=== PATIENT | female | born 1970 | race Caucasian/White ===

== ENCOUNTER → 2018-08-29 08:05 | Outpatient (CLI) | payer OTHER, SELFPAY ==
--- NOTE | 2018-08-29 08:07 | MM_ITS ---
MM Dig screening mamm BI w/CAD CAD Screening COMPARISON: None, this is baseline INDICATION: There is a history of breast cancer patient paternal aunt TECHNIQUE: Standard CC and MLO images were obtained. R2 CAD reviewed. FINDINGS: The breasts are composed primarily of fat with scattered fibroglandular densities in each breast. There is an asymmetric density right breast highlighted by CAD ,recommend the patient return for spot compression views of the area marked on the film. There are scattered benign-appearing ossifications in each breast. There are no suspicious microcalcifications. IMPRESSION: A type breast parenchyma with asymmetric density right breast BI-RADS Category: 0 Need Additional Imaging Evaluation RECOMMENDED FOLLOW-UP: IMM - IMMEDIATE FOLLOW-UP RECOMMENDED (A letter has been sent to the patient regarding results of the study.)
--- NOTE | 2018-08-29 08:07 | US_ITS ---
US transvaginal Ordering Physician: Sandy Verdugo MD Patient Age: 48 years: Female HISTORY: ITS.REASON: US T/V- Abnormal Bleeding Pelvic Pain TECHNIQUE: Transvaginal pelvic ultrasound COMPARISON :February 2007 ultrasound pelvis & CT abdomen FINDINGS: UTERUS: 8.3 cm in length x3.4 x 4.7 cm transverse . No appreciable uterine masses. Endometrial stripe is thickened measuring up to 1.37 cm at superior portion of uterus. Note echogenic focus anterior aspect endometrial stripe in region of the scar as it leads to the endometrium at lower uterine segment... Likely related to the scar itself or minimal calcification A few small scattered nabothian cysts are noted along the cervical canal. LEFT OVARY: Surgically absent RIGHT OVARY. Enlarged measuring 4.25 cm length x 2.13 cm x 3.35 cm. contains moderate size cysts. .Cyst towards the superior portion right ovary measures up to nearly 2.5 cm x 1.25 cm At.Inferior Margin left ovary there is a cyst measuring 1.8 cm X 1.6 cm No significant fluid in cul-de-sac. IMPRESSION: 1. Prominent endometrium- measures up to 1.37 cm AP .... Uterus normal size. No uterine mass is evident. ... Small Echogenic focus anterior aspect lower uterine segment-may be related to to scar 2. Enlarged right ovary.... 4.2 cm maximally. Contain several cysts. The largest measuring up to 2.5 cm 3. No fluid in cul-de-sac.
== END ==
PROVIDERS: PCP Family Medicine; Visit Provider Obstetrics & Gynecology
DX: Z12.31 Encounter for screening mammogram for malignant neoplasm of breast (principal); N92.6 Irregular menstruation, unspecified; R10.2 Pelvic and perineal pain
CPT/HCPCS: 76830; 77067

== ENCOUNTER → 2018-09-21 13:44 | Outpatient (CLI) | payer OTHER, SELFPAY ==
--- NOTE | 2018-09-21 13:58 | XR_ITS ---
XR chest 2V HISTORY: ITS.REASON: BRONCHITIS,COUGH ORDERING PHYSICIAN: Bryn Cash MD PATIENT AGE: 48 years COMPARISON: 03/03/1717 FINDINGS: The cardiomediastinal silhouette and pulmonary vascularity are within normal limits. The lungs are clear without infiltrates, suspicious nodules, or pleural effusions. No acute bony abnormalities. IMPRESSION: Negative chest, no acute finding
--- NOTE | 2018-09-21 14:00 | US_ITS ---
ULTRASOUND RIGHT BREAST MM Dig mamm DX unilat RT CAD Ordering Physician: Bryn Cash MD Patient Age: 48 years Female COMPARISON: 08/29/2018 recent BASELINE screening mammogram INDICATION: Small nodule lateral right breast on that recent screening mammogram DIAGNOSTIC MAMMOGRAM RIGHT BREAST with Spot Views technique: CC and MLO spot views upper outer quadrant along with 90 degree helpful view right breast. Although we again see a small nodular density at the lateral right breast as described on the 08/29/2018 baseline screening mammogram Findings: The small nodular density is is slightly less concerning on mammogram images today measuring 5 mm in size. It seems to correspond with a small cyst at the 9:00 right breast noted on subsequent ultrasound. No new findings otherwise in this diffuse fatty low-density breast.: RIGHT BREAST ULTRASOUND including axillary survey a small cyst is noted at the far lateral right breast 9 o'clock position. This cyst measuring up to measuring 5.2 mm size-would seem to correspond with the density on mammogram. No solid nodule identified. Axillary survey right breast with no significant findings. A few benign-appearing modest size nodes deep axilla observed IMPRESSION......... Small 5 mm nodular density at the 9:00 right breast appears to correspond with a small cyst on subsequent ultrasound No areas of significant concern, identified on either mammogram or ultrasound otherwise. Follow-up in one year. August-September 2019 . BI-RADS Category: 2 Benign Finding(s) RECOMMENDED FOLLOW-UP: 1YR 1 YEAR FOLLOW-UP A letter has been sent to the patient regarding results of the study.) Dictated By: Edwardo Ayers Signed By: 09/25/18 [id number]
== END ==
PROVIDERS: PCP Family Medicine; Visit Provider Family Medicine
DX: R92.8 Other abnormal and inconclusive findings on diagnostic imaging of breast (principal); J40 Bronchitis, not specified as acute or chronic; R05 Cough
CPT/HCPCS: 71046; 76641; 77065

== ENCOUNTER → 2019-12-18 06:24 | Outpatient (CLI) | payer OTHER, SELFPAY ==
--- NOTE | 2019-12-18 | CA_ITS ---
APPROVED REPORT Exam: Pharmacologic Technologist: Jessy Costa Ht: 5 ft 2 in Wt: 200 lbs BSA: 1.91 m2 HR: 123 bpm BP: 126/83 mmHg Indications: CP, SOB Medical History Medications: Metoprolol,,,,, Metformin,,,,, Lasix,,,,, Albuterol,,,,, Montelukast,,,,, DOxepin,,,,, Venlafaxine,,,,, CetIRIZINE,,,,, Allergies: PCN, Codeine, turbutaline Cardiac Risk Factors: HTN, FHX of CAD Stress Test Details Test: LEXISCAN HR Resting HR: 113 bpm Max Heart Rate (APMHR): 172 bpm Max HR Achieved: 128 bpm Target HR (85% APMHR): 146 bpm % of APMHR: 74 Recovery HR: 118 bpm BP Resting BP: 126/83 mmHg Max BP: 139/58 mmHg Recovery BP: 127.0/63.0 mmHg ECG Resting ECG: Sinus tachycardia Clinical Exercise duration: 04:01 min Highest Stage Achieved: Exercise capacity: 1.0 METs Stress ECG Conclusion Lexiscan portion completed. Pt. c/o SOB that resolved during recovery. No chest pain or ectopy. Less than 1.5mm ST Depression. Images to follow Test Summary REST 00:50 . . 113 . 126/ 83 . . Stage 1 . . . . . . . Myoview Injected Stage 1 01:00 . . 122 . . . . Stage 2 01:00 . . 127 . 120/ 70 . . Stage 3 01:00 . . 120 . 139/ 58 . . Stage 4 01:00 . . 118 . 121/ 63 . . Stage 4 01:01 . . 118 . 121/ 63 . Stop exercise at 04:01 RECOVERY 01:00 . . 119 . 127/ 63 . . RECOVERY 02:00 . . 115 . 127/ 63 . . RECOVERY 03:00 . . 114 . 111/ 63 . . RECOVERY 04:00 . . 115 . 135/ 59 . . RECOVERY 04:29 . . 119 . 137/ 66 . . Electronically signed by : Jose Rafael Smiley, 12/18/2019 19:43:42
--- NOTE | 2019-12-18 06:34 | NM_ITS ---
APPROVED REPORT Exam: Nuclear Stress Test Indication: Chest pain, SOB, Palpitations, Syncope, Fatigue, HTN, Former tobacco use, Family history Patient Location: Outpatient Stress Tech: Jessyjonny Costa NM Tech:Lakia Wilder, ARRT, RT (R)(N) Ht: 5 ft 2 in Wt: 260 lbs Bra Size: 38DDD HR: 113 bpm BP: 126/83 mmHg BSA: 2.14 m2 BMI: 47.5 History: Chest pain, SOB, Palpitations, Syncope, Fatigue, HTN, Former tobacco use, Family history Procedure: Patient received a 0.4 mg of intravenous Lexiscan, resting heart rate 113 bpm, resting blood pressure 126/83 mmHg, with Lexiscan maximum heart rate achived was 121 bpm which is Less than 85 % of the maximum predicted heart rate and blood pressure was 139/58 mmHg. With Lexiscan, patient denied any complaint of chest pain. Electrocardiogram Resting electrocardiogram showed sinus rhythm, with Lexiscan there is less than 1.[address] segment depression noted from the baseline EKG. The EKG portion of the Lexiscan Myoview is nondiagnostic. Cardiac Stress and Resting SPECT Images: Cardiac Stress and Resting SPECT images were obtained using technetium 99m Myoview 31.2 mCi stress and 9.94 mCi at rest. Gated SPECT for analysis of segmental wall motion and calculation of the ejection fraction also done. Cardiac stress and resting SPECT images show mild fixed defect in the anterior wall with normal contractility SPECT is likely secondary to soft tissue attenuation, no reversible ischemia seen. Computer derived ejection fraction is over 65% with no regional wall motion abnormality, right ventricle is normal size and contractility. Conclusion: 1. The EKG portion of the Lexiscan Myoview is nondiagnostic. 2. No scintigraphic evidence of reversible ischemia seen, computer derived ejection fraction is over 65% with no regional wall motion abnormality, right ventricle is normal size and contractility. 3. Likely normal Lexiscan Myoview study. Electronically signed by : Jose Rafael Smiley, 12/18/2019 19:45:37
--- NOTE | 2019-12-18 07:17 | CA_ITS ---
APPROVED REPORT EXAM: Comprehensive 2D, Doppler, and color-flow Echocardiogram Purchasing And Claims Supervisor: Yamilet Arellano RVT Ht: 5 ft 2 in Wt: 250lbs BSA: 2.10 BP: 145/82 mmHg Indications: SOA,CP,HTN,FAMILY HX HD TDS 2D Dimensions LVOT 2.06 cm (M/F) 1.5-2.5 M-Mode Dimensions RVDd 2.40 cm (0.9-2.6) LVDd 3.99 cm (3.5-5.7) LVDs 2.74 cm (3.5-5.7) IVSd 0.57 cm (0.6-1.1) PWd 1.14 cm (0.6-1.1) EF (Teich) 59.80% FS 31.30% EDV (Teich) 69.60 mL ESV (Teich) 28.00 mL LV Diastology E/A Ratio 0.85 Mitral Valve MV A Velocity 98.00 (40-130 cm/s) Left Ventricle Left atrium is mildly enlarged, left ventricle is normal size, mild concentric left ventricular hypertrophy, visually estimated ejection fraction of 55 to 60% with no regional wall motion abnormality, Doppler evidence of impaired LV relaxation seen. Right Ventricle Right atrium and right ventricular normal size and contractility. Aortic Valve Aortic valve is minimally thickened and fibrosed, there is no aortic stenosis or aortic insufficiency. Mitral Valve Mitral valve is grossly normal, there is mild mitral regurgitation. Tricuspid Valve Tricuspid valve is grossly normal, there is trace tricuspid regurgitation, tricuspid regurgitation jet velocity is inadequate for calculation of the right ventricular systolic pressure. Pulmonic Valve Pulmonic valve is poorly visualized. Great Vessels Aortic root is normal size. Pericardium No significant pericardial effusion noted. Conclusion 1. Mildly enlarged left atrium, normal left ventricular size, mild concentric left ventricular hypertrophy, visually estimated ejection fraction of 55 to 60% with no regional wall motion abnormality, Doppler evidence of impaired LV relaxation seen 2. Mild mitral and trace tricuspid regurgitation. 3. No significant pericardial effusion noted. Electronically signed by : Jose Rafael Smiley, 12/18/2019 18:33:54
--- NOTE | 2019-12-18 07:45 | HMH.ITSHM ---
Current Home Medications as stated by this patient Jessica Vaughan or loss control representative. []METOPROLOL HCTZ VENAFLAXINE DOXOPIN ASA SINGULAIR CLARITIN ZYRTEC WATER PILL
== END ==
PROVIDERS: PCP Family Medicine; Visit Provider Family Medicine
DX: R06.02 Shortness of breath (principal); R00.0 Tachycardia, unspecified
CPT/HCPCS: 78452; 93017; 93306; A9502; J2785

== ENCOUNTER → 2019-12-25 14:39 | Outpatient (CLI) | payer OTHER, SELFPAY ==
--- NOTE | 2019-12-25 15:05 | US_ITS ---
PROCEDURE: US THYROID CLINICAL INDICATION: HYPERTHYROIDISM Follow-up nodules COMPARISON: THY US THYROID from 08/12/2015 FINDINGS: Right lobe: 3.9 x 1.7 x 1.8 cm. There is heterogeneous echogenicity. Ill-defined 1.6 x 1.3 cm hypoechoic area in the superior pole. 1.4 x 0.8 cm hypoechoic nodular area in the lower pole. Left lobe: 4.3 x 1.6 x 1.6 cm. Heterogeneous echogenicity. 7 mm septated cyst in the mid polar region. There is decreased echogenicity in the mid polar region and in the upper pole without distinct margins. IMPRESSION: Heterogeneous echogenicity of the thyroid gland with questionable nodules versus ill-defined areas of heterogeneous echogenicity. Recommend six-month follow-up. There is a septated cyst in the left lobe. Dictated by: Markus Bradley MD 12/25/2019 19:19 Electronically signed by Markus Bradley MD in [place] 12/25/2019 19:19
== END ==
PROVIDERS: PCP Family Medicine; Visit Provider Family Medicine
DX: E05.90 Thyrotoxicosis, unspecified without thyrotoxic crisis or storm (principal)
CPT/HCPCS: 76536

== ENCOUNTER → 2020-07-05 15:56 | Outpatient (CLI) | payer BC, SELFPAY ==
[2020-07-05 16:36] LABS: Adenovirus,PCR Not Detected (NotDetected); Bordetella Pertussis Not Detected (NotDetected); Chlamydophila Pneumoniae, PCR Not Detected (NotDetected); Coronavirus 229E Not Detected (NotDetected); Coronavirus NL63 Not Detected (NotDetected); Coronavirus OC43 Not Detected (NotDetected); Coronovirus HKU1,PCR Not Detected (NotDetected); Human Metapneumovirus Not Detected (NotDetected); Influenza A, PCR Not Detected (NotDetected); Influenza AH1, 2009 Not Detected (NotDetected); Influenza AH1, PCR Not Detected (NotDetected); Influenza AH3,PCR Not Detected (NotDetected); Influenza B, PCR Not Detected (NotDetected); Mycoplasma Pneumoniae, PCR Not Detected (NotDetected); Parainfluenza 1, PCR Not Detected (NotDetected); Parainfluenza 2, PCR Not Detected (NotDetected); Parainfluenza 3, PCR Not Detected (NotDetected); Parainfluenza 4, PCR Not Detected (NotDetected); Respiratory Syncytial Virus Not Detected (NotDetected); Rhinovirus/Enterovirus Not Detected (NotDetected)
[2020-07-05 16:39] LABS: Basophils # 0.1 K/mm3 (0-0.2); Basophils % 1.1 % (0.1-2.0); Eosinophils # 0.2 K/mm3 (0.0-0.4); Eosinophils % 3.9 % (0.1-12.0); Hematocrit 44.9 % (37.0-47.0); Hemoglobin 14.9 g/dL (12.2-16.2); Lymphocytes # 1.9 K/mm3 (0.7-4.5); Lymphocytes % 43.1 % (10-50); Mean Corpuscular HGB Conc 33.3 g/dL (31.8-35.4); Mean Corpuscular Hemoglobin 29.1 pg (27.0-31.2); Mean Corpuscular Volume 87.4 fl (81-99); Mean Platelet Volume 9.5 fl (7.4-10.4); Monocytes # 0.3 K/mm3 (0.1-1.0); Monocytes % 6.8 % (1.7-9.3); Neutrophils % 45.1 % (37.0-80.0); Platelet Count 170 K/mm3 (142-424); Red Blood Count 5.14 M/mm3 (4.20-5.40); Red Cell Distribution Width 15.7 % (11.5-17.5); White Blood Count 4.3 K/mm3 (4.8-10.8)
[2020-07-08 10:30] LABS: Coronavirus 19, PCR Detected (NotDetected)
== END ==
PROVIDERS: PCP Family Medicine; Visit Provider Nurse Practitioner
DX: Z20.822 Contact with and (suspected) exposure to COVID-19 (principal); U07.1 COVID-19
CPT/HCPCS: 85025; 87275; 87276; 87581; 87633; 87798

== ENCOUNTER 2020-07-10 14:46 | Outpatient (CLI) | payer BC, SELFPAY ==
[2020-07-10 14:55] VITALS: BP 121/67; PULSE 98; RESP 22; TEMP 37.3; O2SAT 98
[2020-07-10 15:01] VITALS: BMI 45.7
== END 2020-07-10 17:45 | disposition home or self-care (01) ==
PROVIDERS: PCP Nurse Practitioner; Visit Provider Nurse Practitioner
DX: U07.1 COVID-19 (principal)
CPT/HCPCS: 96365

== ENCOUNTER → 2023-06-10 23:30 | Outpatient (CLI) | payer BC, SELFPAY ==
[2023-06-10 18:39] LABS: Microalbumin < 6.000 mg/L (0-16.7)
[2023-06-10 18:45] LABS: Alanine Aminotransferase 46 U/L (12-78); Albumin Level 3.6 g/dl (3.5-5.0); Albumin/Globulin Ratio 1.5 (1.1-1.8); Alkaline Phosphatase 87 U/L (38-126); Anion Gap 8.9 mEq/L (5-15); Aspartate Amino Transferase 54 U/L (14-36); Bilirubin,Total 0.4 mg/dl (0.2-1.3); Blood Urea Nitrogen 9 mg/dl (7-17); Calcium 8.5 mg/dl (8.4-10.2); Carbon Dioxide 28 mmol/L (22.0-30.0); Chloride 102 mmol/L (98-107); Chol/HDL Ratio 2.8 (1-3.5); Cholesterol 116 mg/dl (140-200); Estimated Glomerular Filt Rate 75 ml/min (>60); GFR (African American) 91 ML/MIN (>60); Globulin 2.4 g/dL (1.3-3.2); Glucose 229 mg/dl (74-100); HDL Cholesterol 41 mg/dl (40-60); Potassium 3.9 mmoL/L (3.5-5.1); Sodium 135 mmol/L (136-145); Triglycerides 80 mg/dl (30-150); Uric Acid 6.5 mg/dl (2.5-6.2); VLDL Cholesterol 16 mg/dL (0-40)
[2023-06-10 18:46] LABS: Basophils % 0.3 % (0.1-2.0); Eosinophils # 0.2 K/mm3 (0.0-0.4); Eosinophils % 2.9 % (0.1-12.0); Hematocrit 37.1 % (37.0-47.0); Hemoglobin 12.5 g/dL (12.2-16.2); Lymphocytes # 1.8 K/mm3 (0.7-4.5); Lymphocytes % 32.8 % (10-50); Mean Corpuscular HGB Conc 33.7 g/dL (31.8-35.4); Mean Corpuscular Hemoglobin 29.3 pg (27.0-31.2); Mean Platelet Volume 11.3 fl (7.4-10.4); Monocytes # 0.2 K/mm3 (0.1-1.0); Monocytes % 3.8 % (1.7-9.3); Neutrophils # 3.4 K/mm3 (1.8-7.8); Neutrophils % 60.2 % (37.0-80.0); Platelet Count 153 K/mm3 (142-424); Red Blood Count 4.26 M/mm3 (4.20-5.40); Red Cell Distribution Width 15.2 % (11.5-17.5); White Blood Count 5.6 K/mm3 (4.8-10.8)
[2023-06-10 19:00] LABS: 25-OH Vitamin D, Total 40.8 ng/mL (30-100)
[2023-06-10 19:06] LABS: Creatinine,Urine Random 62 mg/dL (Not Estab.)
[2023-06-10 19:09] LABS: Free T4 (Free Thyroxine) 2.02 ng/dl (0.78-2.19)
[2023-06-10 19:30] LABS: Erythrocyte Sedimentation Rate 106 mm/hr (0-30)
[2023-06-10 19:35] LABS: Vitamin B12 591 pg/mL (239-931)
[2023-06-12 09:17] LABS: RA Latex Turbid. <10.0 IU/mL (<14.0)
[2023-06-12 18:19] LABS: Antinuclear Antibodies, IFA Negative (.)
[2023-06-15 12:10] LABS: Anti-Centromere B Antibodies <0.2 AI (0.0-0.9); Anti-DNA (DS) Ab Qn 1 IU/mL (0-9); Anti-Jo-1 <0.2 AI (0.0-0.9); Anti-Smith Antibody <0.2 AI (0.0-0.9); Antichromatin Antibodies <0.2 AI (0.0-0.9); RNP Antibodies 0.2 AI (0.0-0.9); Sjogren's Anti-SS-A <0.2 AI (0.0-0.9); Sjogren's Anti-SS-B <0.2 AI (0.0-0.9)
== END ==
LOC: LAB.DROPOF 23:30
PROVIDERS: PCP Nurse Practitioner; Visit Provider Nurse Practitioner
DX: E03.9 Hypothyroidism, unspecified (principal); E53.8 Deficiency of other specified B group vitamins; E55.9 Vitamin D deficiency, unspecified; I10 Essential (primary) hypertension; G89.29 Other chronic pain; M54.16 Radiculopathy, lumbar region; E11.9 Type 2 diabetes mellitus without complications; Z79.84 Long term (current) use of oral hypoglycemic drugs
CPT/HCPCS: 80053; 80061; 82043; 82306; 82570; 82607; 83036; 84439; 84443; 84550; 85025; 85651; 86038; 86225; 86235; 86431

== ENCOUNTER 2023-08-03 19:10 | Outpatient (CLI) | payer BC, SELFPAY ==
[2023-08-03 19:53] LABS: Alanine Aminotransferase 46 U/L (12-78); Albumin/Globulin Ratio 1.5 (1.1-1.8); Alkaline Phosphatase 73 U/L (38-126); Anion Gap 11.5 mEq/L (5-15); Aspartate Amino Transferase 57 U/L (14-36); Bilirubin,Total 0.7 mg/dl (0.2-1.3); Blood Urea Nitrogen 14 mg/dl (7-17); Calcium 9.4 mg/dl (8.4-10.2); Carbon Dioxide 30 mmol/L (22.0-30.0); Chloride 97 mmol/L (98-107); Estimated Glomerular Filt Rate 88 ml/min (>60); GFR (African American) 106 ML/MIN (>60); Globulin 2.6 g/dL (1.3-3.2); Glucose 109 mg/dl (74-100); Potassium 3.5 mmoL/L (3.5-5.1); Sodium 135 mmol/L (136-145); Total Protein,Serum 6.6 g/dl (6.3-8.2); Uric Acid 6.9 mg/dl (2.5-6.2)
[2023-08-03 20:04] LABS: Erythrocyte Sedimentation Rate 27 mm/hr (0-30)
[2023-08-03 21:12] LABS: Creatinine,Urine Random 77 mg/dL (Not Estab.); Microalbumin < 6.000 mg/L (0-16.7)
== END 2023-08-03 23:59 ==
LOC: LAB.DROPOF 19:10
PROVIDERS: PCP Nurse Practitioner; Visit Provider Nurse Practitioner
DX: E11.9 Type 2 diabetes mellitus without complications (principal); E79.0 Hyperuricemia without signs of inflammatory arthritis and tophaceous disease; M54.16 Radiculopathy, lumbar region; G89.29 Other chronic pain; R70.0 Elevated erythrocyte sedimentation rate; Z79.84 Long term (current) use of oral hypoglycemic drugs
CPT/HCPCS: 80053; 82043; 82570; 84550; 85651

== ENCOUNTER 2023-09-22 14:08 | Outpatient (CLI) | payer BC, SELFPAY ==
[2023-09-21 18:41] LABS: Hemoglobin A1C 5.9 % (4.0-6.0)
[2023-09-21 18:51] LABS: Alanine Aminotransferase 49 U/L (12-78); Albumin Level 4.2 g/dl (3.5-5.0); Albumin/Globulin Ratio 1.4 (1.1-1.8); Alkaline Phosphatase 77 U/L (38-126); Anion Gap 12.3 mEq/L (5-15); Aspartate Amino Transferase 47 U/L (14-36); Bilirubin,Total 0.9 mg/dl (0.2-1.3); Blood Urea Nitrogen 10 mg/dl (7-17); Calcium 9.8 mg/dl (8.4-10.2); Carbon Dioxide 28 mmol/L (22.0-30.0); Chloride 97 mmol/L (98-107); Estimated Glomerular Filt Rate 88 ml/min (>60); GFR (African American) 106 ML/MIN (>60); Globulin 2.9 g/dL (1.3-3.2); Glucose 98 mg/dl (74-100); Potassium 3.3 mmoL/L (3.5-5.1); Sodium 134 mmol/L (136-145); Total Protein,Serum 7.1 g/dl (6.3-8.2)
[2023-09-21 19:07] LABS: Free T4 (Free Thyroxine) 2.56 ng/dl (0.78-2.19)
[2023-09-21 19:21] LABS: Thyroid Stimulating Hormone 2.59 uIU/mL (0.465-4.68)
== END 2023-09-22 23:59 | disposition home or self-care (01) ==
LOC: LAB.DROPOF 14:09
PROVIDERS: PCP Nurse Practitioner; Visit Provider Nurse Practitioner
DX: E11.9 Type 2 diabetes mellitus without complications (principal); E03.9 Hypothyroidism, unspecified; Z79.84 Long term (current) use of oral hypoglycemic drugs; Z79.85 Long-term (current) use of injectable non-insulin antidiabetic drugs
CPT/HCPCS: 80053; 83036; 84439; 84443

== ENCOUNTER 2023-12-21 09:12 | Outpatient (CLI) | payer BC, SELFPAY ==
[2023-12-21 18:57] LABS: Hemoglobin A1C 6.3 % (4.0-6.0)
[2023-12-21 19:01] LABS: Alanine Aminotransferase 24 U/L (12-78); Albumin Level 3.9 g/dl (3.5-5.0); Albumin/Globulin Ratio 1.4 (1.1-1.8); Alkaline Phosphatase 73 U/L (38-126); Anion Gap 10.4 mEq/L (5-15); Aspartate Amino Transferase 31 U/L (14-36); Bilirubin,Total 0.5 mg/dl (0.2-1.3); Blood Urea Nitrogen 12 mg/dl (7-17); Calcium 9.6 mg/dl (8.4-10.2); Carbon Dioxide 27 mmol/L (22.0-30.0); Chloride 104 mmol/L (98-107); Chol/HDL Ratio 2.4 (1-3.5); Cholesterol 136 mg/dl (140-200); Estimated Glomerular Filt Rate 75 ml/min (>60); GFR (African American) 91 ML/MIN (>60); Globulin 2.7 g/dL (1.3-3.2); Glucose 118 mg/dl (74-100); HDL Cholesterol 56 mg/dl (40-60); Potassium 4.4 mmoL/L (3.5-5.1); Sodium 137 mmol/L (136-145); Total Protein,Serum 6.6 g/dl (6.3-8.2); Triglycerides 52 mg/dl (30-150); VLDL Cholesterol 10 mg/dL (0-40)
[2023-12-21 19:12] LABS: Direct LDL Cholesterol 51.98 mg/dL (100-129)
[2023-12-21 19:17] LABS: 25-OH Vitamin D, Total 33.2 ng/mL (30-100)
[2023-12-21 19:53] LABS: Vitamin B12 347 pg/mL (239-931)
== END 2023-12-21 23:59 | disposition home or self-care (01) ==
LOC: LAB.DROPOF 12-22 10:55
PROVIDERS: PCP Nurse Practitioner; Visit Provider Nurse Practitioner
DX: E11.9 Type 2 diabetes mellitus without complications (principal); I10 Essential (primary) hypertension; E53.8 Deficiency of other specified B group vitamins; E55.9 Vitamin D deficiency, unspecified
CPT/HCPCS: 80053; 80061; 82306; 82607; 83036

== ENCOUNTER 2024-03-29 09:15 | Outpatient (CLI) | payer BC, SELFPAY ==
[2024-03-29 19:16] LABS: Chloride 94 mmol/L (98-107); Potassium 3.3 mmoL/L (3.5-5.1); Sodium 132 mmol/L (136-145)
[2024-03-29 19:18] LABS: Alanine Aminotransferase 24 U/L (12-78); Aspartate Amino Transferase 29 U/L (14-36); Blood Urea Nitrogen 10 mg/dl (7-17); Estimated Glomerular Filt Rate 105 ml/min (>60); GFR (African American) 127 ML/MIN (>60)
[2024-03-29 19:19] LABS: Alkaline Phosphatase 65 U/L (38-126); Bilirubin,Total 1.1 mg/dl (0.2-1.3); Calcium 9.7 mg/dl (8.4-10.2); Carbon Dioxide 29 mmol/L (22.0-30.0); Chol/HDL Ratio 2.7 (1-3.5); Cholesterol 141 mg/dl (140-200); Glucose 95 mg/dl (74-100); HDL Cholesterol 52 mg/dl (40-60); Total Protein,Serum 7.1 g/dl (6.3-8.2); Triglycerides 56 mg/dl (30-150); VLDL Cholesterol 11 mg/dL (0-40)
[2024-03-29 19:30] LABS: Direct LDL Cholesterol 58.28 mg/dL (100-129)
[2024-03-29 19:32] LABS: Anion Gap 12.3 mEq/L (5-15)
[2024-03-29 19:38] LABS: Free T4 (Free Thyroxine) 2.71 ng/dl (0.78-2.19)
[2024-03-29 20:32] LABS: Uric Acid 6.6 mg/dl (2.5-6.2)
[2024-03-29 20:45] LABS: Thyroid Stimulating Hormone 2.03 uIU/mL (0.465-4.68)
[2024-03-29 20:46] LABS: Albumin Level 4.3 g/dl (3.5-5.0); Albumin/Globulin Ratio 1.5 (1.1-1.8); Globulin 2.8 g/dL (1.3-3.2)
== END 2024-03-29 23:59 | disposition home or self-care (01) ==
LOC: LAB.DROPOF 03-30 12:18
PROVIDERS: PCP Nurse Practitioner; Visit Provider Nurse Practitioner
DX: E79.0 Hyperuricemia without signs of inflammatory arthritis and tophaceous disease (principal); E11.9 Type 2 diabetes mellitus without complications; I10 Essential (primary) hypertension; E03.9 Hypothyroidism, unspecified
CPT/HCPCS: 80053; 80061; 83036; 84439; 84443; 84550

== ENCOUNTER 2024-07-19 09:50 | Outpatient (CLI) | payer BC, SELFPAY ==
[2024-07-19 19:26] LABS: Albumin Level 3.9 g/dl (3.5-5.0); Chloride 103 mmol/L (98-107); Potassium 3.7 mmoL/L (3.5-5.1); Sodium 137 mmol/L (136-145)
[2024-07-19 19:28] LABS: Blood Urea Nitrogen 7 mg/dl (7-17); Estimated Glomerular Filt Rate 88 ml/min (>60); GFR (African American) 106 ML/MIN (>60)
[2024-07-19 19:29] LABS: Alanine Aminotransferase 19 U/L (12-78); Albumin/Globulin Ratio 1.9 (1.1-1.8); Alkaline Phosphatase 65 U/L (38-126); Anion Gap 9.7 mEq/L (5-15); Aspartate Amino Transferase 25 U/L (14-36); Bilirubin,Total 0.3 mg/dl (0.2-1.3); Carbon Dioxide 28 mmol/L (22.0-30.0); Cholesterol 131 mg/dl (140-200); Creatinine,Urine Random 35 mg/dL (Not Estab.); Globulin 2.1 g/dL (1.3-3.2); Glucose 80 mg/dl (74-100); Hemoglobin A1C 4.8 % (4.0-6.0); Microalbumin < 6.000 mg/L (0-16.7); Triglycerides 68 mg/dl (30-150); VLDL Cholesterol 14 mg/dL (0-40)
[2024-07-19 19:30] LABS: Chol/HDL Ratio 2.6 (1-3.5); HDL Cholesterol 50 mg/dl (40-60)
[2024-07-19 19:41] LABS: Direct LDL Cholesterol 50.25 mg/dL (100-129)
== END 2024-07-19 23:59 | disposition home or self-care (01) ==
LOC: LAB.DROPOF 07-20 13:12
PROVIDERS: PCP Nurse Practitioner; Visit Provider Nurse Practitioner
DX: E11.9 Type 2 diabetes mellitus without complications (principal); I10 Essential (primary) hypertension; Z72.0 Tobacco use; Z79.84 Long term (current) use of oral hypoglycemic drugs
CPT/HCPCS: 80053; 80061; 82043; 82570; 83036

== ENCOUNTER 2024-12-18 09:30 | Outpatient (CLI) | payer BC, SELFPAY ==
--- OUTSIDE RECORDS SUMMARY | 2024-11-24 09:26 | XMS_ITS | Encounter Summary ---
Author Organization [facility] [place] [address] Care Team Providers Care Clay Digger Name Role Phone Nato Hanna MD Primary Care Provider [phone] Encounter Details Date Type Department Care Team (Latest Contact Info) Description 11/24/2024 9:26 AM EDT - 11/24/2024 11:59 PM EDT Hospital Encounter [facility] [address] [place] [address] Rheumatoid arthritis of multiple sites without rheumatoid factor (HCC) (Primary Dx) Discharge Disposition: Home or Self Care Social History Tobacco Use Types Packs/Day Years Used Date Smoking Tobacco: Every Day Cigarettes 0.3 20 Smokeless Tobacco: Never Alcohol Use Standard Drinks/Week Comments No 0 (1 standard drink = 0.6 oz pur e alcohol) Comments No Sex and Gender Information Value Date Recorded Sex Assigned at Not on file Legal Sex Female 11:33 PM EDT Gender Identity Not on file Sexual Orientation Not on file documented as of this encounter Medications at Time of Discharge albuterol (PROVENTIL HFA;VENTOLIN HFA) 90 mcg/actuation Inhl HFA Aerosol Inhaler INHALE 2 PUFF(S) BY MOUTH 4 TIMES A DAY AND AND NEEDED 0 calcium carbonate (OS-CHARLIE) 500 mg calcium (1,250 mg) Oral Tablet Take 1 Tab by mouth 3 times daily. Take 1 tablet by mouth 3 times per day for 1 week, then take 1 tablet by mouth 2 times per day for 1 week, then take 1 tablet by mouth Do not delay or skip taking this medication. 42 Tab 1 0 calcium carbonate (OS-CHARLIE) 500 mg calcium (1,250 mg) Oral Tablet Take 1 Tab by mouth 3 times daily. Take 1 tablet by mouth 3 times per day for 1 week, then take 1 tablet by mouth 2 times per day for 1 week, then take 1 tablet by mouth Do not delay or skip taking this medication. 42 Tab 1 0 cetirizine (ZYRTEC) 10 mg Oral Tablet Take 10 mg by mouth nightly as needed. Cholecalciferol, Vitamin D3, 50 mcg (2,000 unit) Oral Capsule Take by mouth daily. doxepin (SINEQUAN) 10 mg Oral Capsule TAKE 1 CAP(S) 3 TIMES A DAY NEEDED ORALLY 30 DAY(S) 0 fluticasone propionate (FLONASE) 50 mcg/actuation Nasl [place], Suspension 1 [place] by Nasal route 2 times daily. fUROsemide (LASIX) 40 mg Oral Tablet Take 40 mg by mouth as needed. glimepiride (AMARYL) 1 mg Oral Tablet Take 1 Tab by mouth 2 times daily (with meals). Take up to 2 time daily with meals; skip dose if meal skipping. 60 Tab 11 0 hydroCHLOROthiazide (HYDRODIURIL) 25 mg Oral Tablet Take 25 mg by mouth daily. 0 HYDROcodone-acetami nophen (NORCO) 5-325 mg Oral Tablet Take 1 Tab by mouth every 4 hours as needed for Major Surgery/Trauma (G89.18). 40 Tab 0 LEVOthyroxine (SYNTHROID) 137 mcg Oral TabletIndications:P ost-surgical hypothyroidism Take 1 Tab by mouth daily. 30 Tab 3 0 metFORMIN (GLUCOPHAGE) 500 mg Oral Tablet TAKE 1 TABLET BY MOUTH TWICE A DAY 60 Tablet 1 metOLazone (ZAROXOLYN) 2.5 mg Oral Tablet Take 2.5 mg by mouth every other day. 0 metoprolol succinate (TOPROL-XL) 25 mg Oral Tablet Sustained Release 24 hrIndications:inapp ropriate sinus tachycardia Take 5 Tabs by mouth nightly. Indications: inappropriate sinus tachycardia 150 Tab 11 0 Omeprazole 20 mg Oral Tablet, Delayed Release (E.C.) Take 20 mg by mouth daily. Potassium Iodide 130 mg Oral Tablet Take by mouth 2 times daily. ranitidine (ZANTAC) 150 mg Oral Tablet Take 150 mg by mouth 2 times daily. venlafaxine (EFFEXOR) 75 mg Oral Tablet Take 75 mg by mouth daily. documented as of this encounter Discharge Disposition Disposition Code Departure Means Destination Home or Self Care documented in this encounter Plan of Treatment Not on file documented as of this encounter Procedures Procedure Name Priority Date/Time Associated Diagnosis Comments SEDIMENTATION RATE AUTOMATED Routine 11/24/2024 9:34 AM EDT Rheumatoid arthritis of multiple sites without rheumatoid factor (HCC) CBC WITH DIFF Routine 11/24/2024 9:34 AM EDT Rheumatoid arthritis of multiple sites without rheumatoid factor (HCC) C-REACTIVE PROTEIN Routine 11/24/2024 9: 34 AM EDT Rheumatoid arthritis of multiple sites without rheumatoid factor (HCC) COMPREHENSIVE METABOLIC PANEL Routine 11/24/2024 9:34 AM EDT Rheumatoid arthritis of multiple sites without rheumatoid factor (HCC) documented in this encounter Results * SEDIMENTATION RATE AUTOMATED (11/24/2024 9:34 AM EDT) Sed Rate 7 0 - 30 mm/hr 11/24/2024 4:07 PM EDT [facility] Blood VENOUS BLOOD / Unknown Venipuncture / Unknown 11/24/2024 9:34 AM EDT 11/24/2024 9:34 AM EDT us Danelle Solitario MD HEMATOLOGY ORDERABLES Final Result [facility] , [place] [address] * (ABNORMAL) CBC WITH DIFF (11/24/2024 9:34 AM EDT) WBC 5.1 3.7 - 10.3 x10(3)/mcL 11/24/2024 4:07 PM EDT [facility] RBC 4.05 3.90 - 5.20 x10(6)/mcL 11/24/2024 4:07 PM EDT [facility] Hgb 12.4 11.2 - 15.7 g/dL 11/24/2024 4:07 PM EDT [facility] Hct 38.0 34.0 - 45.0 % 11/24/2024 4:07 PM EDT [facility] MCV 93.8 80.0 - 100.0 fL 11/24/2024 4:07 PM EDT [facility] MCH 30.6 26.0 - 34.0 pg 11/24/2024 4:07 PM EDT [facility] MCHC 32.6 30.7 - 35.5 g/dL 11/24/2024 4:07 PM EDT [facility] RDW 15.3(H) <=14.9 % 11/24/2024 4:07 PM EDT [facility] Platelet 174 155 - 369 x10(3)/mcL 11/24/2024 4:07 PM EDT [facility] MPV 12.5 8.8 - 12.5 fL 11/24/2024 4:07 PM EDT [facility] Neut Percent 35.0 % 11/24/2024 4:07 PM EDT [facility] Comment:Neutrophils equals s egs plus bands Imm Gran% 0.2 % 11/24/2024 4:07 PM EDT [facility] Comment:Automated count of m etamyelocytes, myelocytes and promyelocytes. Lymph Percent 54.7 % 11/24/2024 4:07 PM EDT [facility] Chaves Percent 7.0 % 11/24/2024 4:07 PM EDT [facility] Eos Percent 2.7 % 11/24/2024 4:07 PM EDT [facility] Baso Percent 0.4 % 11/24/2024 4:07 PM EDT [facility] Neut # 1.8 1.6 - 6.1 x10(3)/mcL 11/24/2024 4:07 PM EDT [facility], [facility] Comment:Neutrophils equals s egs plus bands IMMGRAN# 0.0 0.0 - 0.1 x10(3)/[facility] 11/24/2024 4:07 PM EDT [facility], [facility] Comment:Automated count of m etamyelocytes, myelocytes and promyelocytes. An absolute IG <0.1 is reported as 0.0. Lymph # 2.8 1.2 - 3.9 x10(3)/[facility] 11/24/2024 4:07 PM EDT [facility], [facility] Chaves # 0.4 0.3 - 0.9 x10(3)/[facility] 11/24/2024 4:07 PM EDT [facility] Eos# 0.1 0.0 - 0.5 x10(3)/[facility] 11/24/2024 4:07 PM EDT [facility] Baso # 0.0 0.0 - 0.1 x10(3)/[facility] 11/24/2024 4:07 PM EDT [facility], [facility] Blood VENOUS BLOOD / Unknown Venipuncture / Unknown 11/24/2024 9:34 AM EDT 11/24/2024 9:34 AM EDT Danelle Solitario MD HEMATOLOGY ORDERABLES Final Result [facility], [address] , [place] [address] * (ABNORMAL) C-REACTIVE PROTEIN (11/24/2024 9:34 AM EDT) [facility] Signature CRP 9.68(H) <=5.00 mg/L 11/24/2024 4:28 PM EDT [facility], [facility] Blood VENOUS BLOOD / Unknown Venipuncture / Unknown 11/24/2024 9:34 AM EDT 11/24/2024 9:34 AM EDT Danelle Solitario MD CHEMISTRY ORDERABLES Final R esult [facility], [facility] [address] [facility] , [place] [address] * COMPREHENSIVE METABOLIC PANEL (11/24/2024 9:34 AM EDT) Sodium 140 136 - 145 mmol/L 11/24/2024 4:28 PM EDT [facility] Potassium 4.3 3.5 - 5.0 mmol/L 11/24/2024 4:28 PM EDT [facility] Chloride 105 98 - 107 mmol/L 11/24/2024 4:28 PM EDT [facility] Total CO2 27 22 - 29 mmol/L 11/24/2024 4:28 PM EDT [facility] Anion Gap 8 7 - 16 mmol/L 11/24/2024 4:28 PM EDT [facility] Calcium 9.6 8.6 - 10.4 mg/dL 11/24/2024 4:28 PM EDT [facility] Glucose Lvl 86 70 - 99 mg/dL 11/24/2024 4:28 PM EDT [facility] BUN 7 6 - 20 mg/dL 11/24/2024 4:28 PM EDT [facility] Creatinine 0.73 0.51 - 1.30 mg/dL 11/24/2024 4:28 PM EDT [facility] Albumin 4.0 3.5 - 5.2 gm/dL 11/24/2024 4:28 PM EDT [facility] Total Protein 6.7 6.4 - 8.3 gm/dL 11/24/2024 4:28 PM EDT [facility] Bili Total 0.4 0.2 - 1.3 mg/dL 11/24/2024 4:28 PM EDT [facility] ALT 14 <=41 U/L 11/24/2024 4:28 PM EDT [facility] AST 20 <=40 U/L 11/24/2024 4:28 PM EDT [facility] Alk Phos 64 36 - 123 U/L 11/24/2024 4:28 PM EDT [facility] eGFR (CKD-EPIcr 2020) 98 >=60 mL/min/1.7 3 m2 11/24/2024 4:28 PM EDT [facility] Comment:Estimated GFR was ca lculated using the CKD-EPIcr (2020) equation refit without race. The equation is recommended by the [employer] - [place] [employer]ph[employer] Task Force. Blood VENOUS BLOOD / Unknown Venipuncture / Unknown 11/24/2024 9:34 AM EDT 11/24/2024 9:34 AM EDT us Danelle Solitario MD CHEMISTRY ORDERABLES Final R esult [facility] [address] [facility] , [address] [address] [place] [address] documented in this encounter Visit Diagnoses Diagnosis Rheumatoid arthritis of multiple sites without rheumatoid factor (HCC)- Primary Rheumatoid arthritis documented in this encounter Care Teams Clay Digger Relationship Specialty Start Date End Date Nato Hanna MD [facility] [address] [place] [address] PCP - General Family Medicine 10/22/14 documented as of this encounter
[2024-12-18 19:34] LABS: Hematocrit 40.7 % (37.0-47.0); Hemoglobin 13.2 g/dL (12.2-16.2); Immature Granulocytes % 0.4 %; Mean Corpuscular HGB Conc 32.4 g/dL (31.8-35.4); Mean Corpuscular Hemoglobin 29.6 pg (27.0-31.2); Mean Corpuscular Volume 91.3 fl (81-99); Nucleated Red Blood Cells % 0 %; Platelet Count 193 K/mm3 (142-424); Red Blood Count 4.46 M/mm3 (4.20-5.40); Red Cell Distribution Width-SD 48.1 fL; White Blood Count 7.3 K/mm3 (4.8-10.8)
[2024-12-18 20:16] LABS: Alanine Aminotransferase 17 U/L (12-78); Albumin Level 4.3 g/dl (3.5-5.0); Albumin/Globulin Ratio 1.6 (1.1-1.8); Alkaline Phosphatase 82 U/L (38-126); Anion Gap 16.9 mEq/L (5-15); Aspartate Amino Transferase 28 U/L (14-36); Bilirubin,Total 0.8 mg/dl (0.2-1.3); Blood Urea Nitrogen 13 mg/dl (7-17); Calcium 9.0 mg/dl (8.4-10.2); Carbon Dioxide 27 mmol/L (22.0-30.0); Chloride 95 mmol/L (98-107); Cholesterol 150 mg/dl (140-200); Creatinine,Serum 0.70 mg/dl (0.52-1.04); Estimated Glomerular Filt Rate 88 ml/min (>60); GFR (African American) 106 ML/MIN (>60); Globulin 2.7 g/dL (1.3-3.2); Glucose 78 mg/dl (74-100); HDL Cholesterol 57 mg/dl (40-60); Potassium 3.9 mmoL/L (3.5-5.1); Sodium 135 mmol/L (136-145); Total Protein,Serum 7.0 g/dl (6.3-8.2); Triglycerides 61 mg/dl (30-150)
[2024-12-18 20:21] LABS: Free T4 (Free Thyroxine) 2.57 ng/dl (0.78-2.19)
[2024-12-18 20:28] LABS: 25-OH Vitamin D, Total 25.3 ng/mL (30-100)
[2024-12-18 20:49] LABS: Thyroid Stimulating Hormone 1.39 uIU/mL (0.465-4.68)
[2024-12-18 20:53] LABS: Hepatitis C Ab Qual. W/ RFX NEGATIVE (Negative)
[2024-12-18 21:09] LABS: Vitamin B12 818 pg/mL (239-931)
[2024-12-18 22:00] LABS: Hemoglobin A1C 5.4 % (4.0-6.0)
--- OUTSIDE RECORDS SUMMARY | 2024-12-19 07:19 | XMS_ITS | Clinical Summary ---
Author Organization [facility] Address [address] [facility] [address] [place], [place] [address] Phone Care Team Providers Care Director Of Dietary Name Role Phone Nato Hanna MD Primary Care Provider [phone] Allergies Active Allergy Reactions Criticality Noted Date Comments Terbutaline Rash 05/13/2020 Codeine Rash 12/04/2014 and get deathly ill with nausea and vomiting Penicillins Anaphylaxis High 12/04/2014 Medications cetirizine (ZYRTEC) 10 mg Oral Tablet Take 10 mg by mouth nightly as needed. Active ranitidine (ZANTAC) 150 mg Oral Tablet Take 150 mg by mouth 2 times daily. Active venlafaxine (EFFEXOR) 75 mg Oral Tablet Take 75 mg by mouth daily. Active fUROsemide (LASIX) 40 mg Oral Tablet Take 40 mg by mouth as needed. Active albuterol (PROVENTIL HFA;VENTOLIN HFA) 90 mcg/actuation Inhl HFA Aerosol Inhaler INHALE 2 PUFF(S) BY MOUTH 4 TIMES A DAY AND AND NEEDED 11/19/19 20 Active doxepin (SINEQUAN) 10 mg Oral Capsule TAKE 1 CAP(S) 3 TIMES A DAY NEEDED ORALLY 30 DAY(S) 12/01/19 20 Active hydroCHLOROthiazid e (HYDRODIURIL) 25 mg Oral Tablet Take 25 mg by mouth daily. 12/08/19 20 Active metOLazone (ZAROXOLYN) 2.5 mg Oral Tablet Take 2.5 mg by mouth every other day. 12/15/19 Active metoprolol succinate (TOPROL-XL) 25 mg Oral Tablet Sustained Release 24 hrIndications:inap propriate sinus tachycardia Take 5 Tabs by mouth nightly. Indications: inappropriate sinus tachycardia 150 Tab 11 03/04/20 Active glimepiride (AMARYL) 1 mg Oral Tablet Take 1 Tab by mouth 2 times daily (with meals). Take up to 2 time daily with meals; skip dose if meal skipping. 60 Tab 11 03/08/20 Active Omeprazole 20 mg Oral Tablet, Delayed Release (E.C.) Take 20 mg by mouth daily. Active Cholecalciferol, Vitamin D3, 50 mcg (2,000 unit) Oral Capsule Take by mouth daily. Active Potassium Iodide 130 mg Oral Tablet Take by mouth 2 times daily. Active fluticasone propionate (FLONASE) 50 mcg/actuation Nasl [place], Suspension 1 [place] by Nasal route 2 times daily. Active HYDROcodone-acetam inophen (NORCO) 5-325 mg Oral Tablet Take 1 Tab by mouth every 4 hours as needed for Major Surgery/Trauma (G89.18). 40 Tab 05/16/20 Active Additional Information Patient not taking.Reported on 05/22/2020 calcium carbonate (OS-CHARLIE) 500 mg calcium (1,250 mg) Oral Tablet Take 1 Tab by mouth 3 times daily. Take 1 tablet by mouth 3 times per day for 1 week, then take 1 tablet by mouth 2 times per day for 1 week, then take 1 tablet by mouth Do not delay or skip taking this medication. 42 Tab 1 05/16/20 Active calcium carbonate (OS-CHARLIE) 500 mg calcium (1,250 mg) Oral Tablet Take 1 Tab by mouth 3 times daily. Take 1 tablet by mouth 3 times per day for 1 week, then take 1 tablet by mouth 2 times per day for 1 week, then take 1 tablet by mouth Do not delay or skip taking this medication. 42 Tab 1 05/16/20 Active Additional Information Patient not taking.Reported on 05/30/2020 LEVOthyroxine (SYNTHROID) 137 mcg Oral TabletIndications: Post-surgical hypothyroidism Take 1 Tab by mouth daily. 30 Tab 3 05/30/20 Active metFORMIN (GLUCOPHAGE) 500 mg Oral Tablet TAKE 1 TABLET BY MOUTH TWICE A DAY 60 Tablet 11/15/20 21 Active Active Problems Patient Care Coordination No te Formatting of this note migh t be different from the original. Buddy IQBAL (surgery) Controlled report completed 05/15/2020 as expected Req # [id number] Informed consent signed 04/11/20 Problem Noted Date Diagnosed Date Post-surgical hypothyroidism 05/30/2020 Overview (05/30/2020): Thyroidectomy on 05/16/2020 for definitive treatment of goiter and difficult to control hyperthyroidism. Assessment & Plan (05/30/2020 1:59 PM EST): Thyroid hormone levels reviewed. Her TSH is elevated on Levothyroxine 125 mcg daily. Her free T4 is normal. My recommendation is to increase her Levothyroxine to 137 mcg now. I will follow up with repeat lab tests and visit in about six weeks. Graves disease 05/02/2020 Overview (05/30/2020): Difficult to control requiring high dose propylthiouracil. 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 Treated surgically by Dr. Margarito Forbes on 05/16/2020 Assessment & Plan (05/30/2020 1:57 PM EST): Hyperthyroidism resolved following surgery. She discontinued the PTU as instructed. Abnormal thyroid blood test 05/02/2020 Prediabetes 01/01/2020 PCOS (polycystic ovarian syndrome) 01/01/2020 Hyperthyroidism 01/01/2020 CTS (carpal tunnel syndrome)right 12/03/2014 Cubital tunnel syndrome on right 12/03/2014 Encounters Date Type Department Care Team Description 11/24/2024 9:26 AM EDT - 11/24/2024 11:59 PM EDT Hospital Encounter [facility] [address] [place] [address] [id number] Rheumatoid arthritis of multiple sites without rheumatoid factor (HCC) (Primary Dx) Discharge Disposition: Home or Self Care from Last 3 Months Surgical History Surgery Date Site/Laterality Comments TONSILLECTOMY OVARY REMOVAL Left ovary removed CARPAL TUNNEL RELEASE 12/04/2014 Surgeon: Froylan Prieto MD; Location: [facility]; Service: Hand ENDOMETRIAL ABLATION 09/12/2018 - 10/11/2018 SECTION x2 THYROIDECTOMY 05/16/2020 N/A Total thyroidectomy; Surgeon: Margarito Forbes MD; Location: [facility]; Service: ENT Medical History Medical History Date Comments Edema of both legs Hypertension Hives Chronic hives be ing treated with antihistamines Anxiety Seasonal allergies Wears prescription eyeglasses Wears partial dentures bottom Bronchitis, chronic (HCC) due to seasonl allergies Pneumonia Shortness of breath GUERRERO (dyspnea on exertion) Heartburn Diabetes mellitus (HCC) pre Thyroid disease Depression Encounter for blood transfusion 1992 Family History Medical History Relation Name Comments No Known Problems Brother Bipolar Disorder Daughter Depression Daughter Heart Attack Daughter Heart Failure Daughter CHF High Blood Pressure Daughter Anxiety Disorder Father Cancer Father non-hogkins lym phoma Coronary Art Dis Father High Blood Pressure Father High Cholesterol Father Hypertension Father Lung Cancer Father Stroke Father Coronary Art Dis Maternal Grandfather High Blood Pressure Maternal Grandfather Diabetes Maternal Grandmother High Blood Pressure Maternal Grandmother Thyroid Disease Maternal Grandmother Grav es Anemia Mother Coronary Art Dis Mother Dementia Mother Diabetes Mother High Blood Pressure Mother Obesity Mother Thyroid Disease Mother Graves Colon Polyps Paternal Grandfather High Blood Pressure Paternal Grandfather Diabetes Paternal Grandmother High Blood Pressure Paternal Grandmother Obesity Paternal Grandmother Thyroid Disease Paternal Grandmother No Known Problems Sister Allergies Neg Hx Anesth Problems Neg Hx Bleeding Prob Neg Hx Hearing Loss Neg Hx Heart Disease Neg Hx Migraines Neg Hx Relation Name Status Comments Brother Daughter Alive born in 1997 w/ Hypo plastic left heart syndrome Father Maternal Grandfather Maternal Grandmother Mother Alive Paternal Grandfather Paternal Grandmother Sister Social History Tobacco Use Types Packs/Day Years Used Date Smoking Tobacco: Every Day Cigarettes 0.3 20 Smokeless Tobacco: Never Tobacco Cessation:Ready to Q uit: Yes Alcohol Use Standard Drinks/Week Comments No 0 (1 standard drink = 0.6 oz pur e alcohol) Comments No Sex and Gender Information Value Date Recorded Sex Assigned at Not on file Legal Sex Female 11:33 PM EDT Gender Identity Not on file Sexual Orientation Not on file Obstetrics History Last Filed Vital Signs Vital Sign Reading Time Taken Comments Blood Pressure 160/80 05/16/2020 2:39 PM EST Pulse 92 05/16/2020 2:39 PM EST Temperature 36.5 C (97.7 F) 05/22/2020 3:49 PM EST Respiratory Rate 14 05/16/2020 2:39 PM EST Oxygen Saturation 98% 05/16/2020 2:39 PM EST Inhaled Oxygen Concentration - - Weight 116.6 kg (257 lb) 05/30/2020 8:48 AM EST per pt Height 157.5 cm (5' 2 ) 05/22/2020 3:49 PM EST Body Mass Index 47.01 05/22/2020 3:49 PM EST Plan of Treatment Health Maintenance Due Date Last Done Comments Annual Wellness Exam 1974 Kidney Health: uACR 1981 Lipids 1981 Diabetic Eye Exam 1989 Hepatitis B Vaccine (1 of 3 - 19+ 3-dose series) 1990 Cervical Cancer Screening 1992 Pap Smear 1992 HPV/Pap Cotest 2001 Breast Cancer Screening 2011 Cologuard 2016 Colon Cancer Screening 2016 Colonoscopy 2016 FIT 2016 Sigmoidoscopy 2016 Virtual Colonography 2016 Hemoglobin A1c 11/14/2020 05/16/2020 Pneumococcal Vaccine 50+ (1 of 1 - PCV) 2021 Zoster (1 of 2) 2021 COVID-19 Vaccine (3 - season) 2024 11/14/2020, 10/17/2020 Influenza Vaccine (#1) 2025 08/01/2018 Kidney Health: eGFR 11/24/2025 11/24/2024, 08/28/2024, 03/17/2024, Additional history exists DTaP/TDaP/Td (3 - Td or Tdap) 08/01/2028 08/01/2018, 08/22/2011 Meningococcal B Vaccine Aged Out No l onger eligible based on patient's age to complete this topic Procedures Procedure Name Priority Date/Time Associated Diagnosis [...] of multiple sites without rheumatoid factor (HCC) HEMOGLOBIN A1C Routine 05/16/2020 10:53 AM EST from Last 3 Months or Most Recently Relevant to Health Maintenance Results * SEDIMENTATION RATE AUTOMATED (11/24/2024 9:34 AM EDT) Pathologist [facility] Sed Rate 7 0 - 30 mm/hr 11/24/2024 4:07 PM EDT [email or web address] [employer] Blood VENOUS BLOOD / Unknown Venipuncture / Unknown 11/24/2024 9:34 AM EDT 11/24/2024 9:34 AM EDT us Danelle Solitario MD HEMATOLOGY ORDERABLES Final Result [email or web address] [employer] [address] [facility] , [place] [address] * (ABNORMAL) CBC WITH DIFF (11/24/2024 9:34 [...] 11/24/2024 4:07 PM EDT [facility] RDW 15.3(H) <=14.9 % 11/24/2024 4:07 PM EDT [facility] Platelet 174 155 - 369 x10(3)/mcL 11/24/2024 4:07 PM EDT [facility] MPV 12.5 8.8 - 12.5 fL 11/24/2024 4:07 PM EDT [facility] Neut Percent 35.0 % 11/24/2024 4:07 PM EDT [facility] Comment:Neutrophils equals s egs plus bands Imm Gran% 0.2 % 11/24/2024 4:07 PM EDT [facility] Comment:Automated count of m etamyelocytes, myelocytes and promyelocytes. Lymph Percent 54.7 % 11/24/2024 4:07 PM EDT [facility] Esmeralda Percent 7.0 % 11/24/2024 4:07 PM EDT [facility] Eos Percent 2.7 % 11/24/2024 4:07 PM EDT [facility] Baso Percent 0.4 % 11/24/2024 4:07 PM EDT [facility] Neut # 1.8 1.6 - 6.1 x10(3)/mcL 11/24/2024 4:07 PM EDT [facility] Comment:Neutrophils equals s egs plus bands IMMGRAN# 0.0 0.0 - 0.1 x10(3)/mcL 11/24/2024 4:07 PM EDT [facility] Comment:Automated count of m etamyelocytes, myelocytes and promyelocytes. An absolute IG <0.1 is reported as 0.0. Lymph # 2.8 1.2 - 3.9 x10(3)/mcL 11/24/2024 4:07 PM EDT [facility] Esmeralda # 0.4 0.3 - 0.9 x10(3)/mcL 11/24/2024 4:07 PM EDT [facility] Eos# 0.1 0.0 - 0.5 x10(3)/mcL 11/24/2024 4:07 PM EDT [facility] Baso # 0.0 0.0 - 0.1 x10(3)/mcL 11/24/2024 4:07 PM EDT [facility] Blood VENOUS BLOOD / Unknown Venipuncture / Unknown 11/24/2024 9:34 AM EDT 11/24/2024 9:34 AM EDT Danelle Solitario MD HEMATOLOGY ORDERABLES Final Result Performing Organization Address City/[facility]/ZIP Co de Phone Number [facility], [address] , [place] [address] * (ABNORMAL) C-REACTIVE PROTEIN (11/24/2024 9:34 AM EDT) CRP 9.68(H) <=5.00 mg/L 11/24/2024 4:28 PM EDT [facility] Blood VENOUS BLOOD / Unknown Venipuncture / Unknown 11/24/2024 9:34 AM EDT 11/24/2024 9:34 AM EDT Danelle Solitario MD CHEMISTRY ORDERABLES Final R esult Performing Organization Address [facility]/ZIP Co de Phone Number [email or web address], [address] , [place] [address] * COMPREHENSIVE METABOLIC PANEL (11/24/2024 9:34 AM [...] 11/24/2024 4:28 PM EDT [facility] Glucose Lvl 86 70 - 99 mg/dL 11/24/2024 4:28 PM EDT [facility] BUN 7 6 - 20 mg/dL 11/24/2024 4:28 PM EDT [facility] Creatinine 0.73 0.51 - 1.30 mg/dL 11/24/2024 4:28 PM EDT [facility] Albumin 4.0 3.5 - 5.2 gm/dL 11/24/2024 4:28 PM EDT [facility] Total Protein 6.7 6.4 - 8.3 gm/dL 11/24/2024 4:28 PM EDT [facility] Bili Total 0.4 0.2 - 1.3 mg/dL 11/24/2024 4:28 PM EDT [facility] ALT 14 <=41 U/L 11/24/2024 4:28 PM EDT [facility] AST 20 <=40 U/L 11/24/2024 4:28 PM EDT [facility] Alk Phos 64 36 - 123 U/L 11/24/2024 4:28 PM EDT [facility] eGFR (CKD-EPIcr 2020) 98 >=60 mL/min/1.7 3 m2 11/24/2024 4:28 PM EDT [facility] Comment:Estimated GFR was ca lculated using the CKD-EPIcr (2020) equation refit without race. The equation is recommended by the National Kidney [employer] - [place] Society of Nephrology Task Force. Blood VENOUS BLOOD / Unknown Venipuncture / Unknown 11/24/2024 9:34 AM EDT 11/24/2024 9:34 AM EDT us Danelle Solitario MD CHEMISTRY ORDERABLES Final R esult [facility] [address] [facility] , [address] [place] [id number] * (ABNORMAL) HEMOGLOBIN A1C (05/16/2020 10:53 AM EST) Hgb A1C 7.2(H) 4.2 - 5.6 % 05/16/2020 11:22 AM EST [employer] Est. Avg Glucose 160 mg/dL 05/16/2020 11:22 AM EST [employer] Blood VENOUS BLOOD / Unknown Venipuncture / Unknown 05/16/2020 10:53 AM EST 05/16/2020 10:59 AM EST Narrative [facility] - 05/16/2020 11:22 AM EST REFERENCE RANGE: Normal: 4.0-5.6% Pre-diabetes: 5.7-6.4% Provisional diagnosis of diabetes: >6.4% Hgb F>10% and anything which shortens red cell survival, such as hemolytic anemia, or unstable hemoglobin variants such as HbSS, HbSC, or HbCC, will lower the HbA1c value associated with a given level of glycemic control. Margarito Forbes MD CHEMISTRY ORDERABLES Final Resul t [employer] [address] [facility] , [place] [address] from Last 3 Months or Most Recently Relevant to Health Maintenance [facility] Care Teams Director Of Dietary Relationship Specialty Start Date End Date Nato Hanna MD [address] [address] [address] [place] [address] PCP - General Family Medicine 10/22/14
[2024-12-20 09:14] LABS: Hepatitis B Surface Antigen Negative (Negative)
== END 2024-12-18 23:59 | disposition home or self-care (01) ==
LOC: LAB.DROPOF 12-19 07:18
PROVIDERS: PCP Nurse Practitioner; Visit Provider Nurse Practitioner
DX: E55.9 Vitamin D deficiency, unspecified (principal); E53.8 Deficiency of other specified B group vitamins; I10 Essential (primary) hypertension; E11.9 Type 2 diabetes mellitus without complications; E03.9 Hypothyroidism, unspecified; Z11.9 Encounter for screening for infectious and parasitic diseases, unspecified
CPT/HCPCS: 80053; 80061; 80074; 82306; 82607; 83036; 84439; 84443; 85025; 87340; 87389